=== PATIENT | male | born 1980 | race Caucasian/White ===

== ENCOUNTER → 2018-12-18 | Outpatient (CLI) | payer BC ==
[~2018-12-18] MED LIST: CEFTIN 250250 MG/TAB PO; PEPCID40 MG PO; PRIL40 PO; ZITHROMAX 250M250 MG PO
== END ==
LOC: COL.RAD 12-04 13:15
DX: M51.37 Other intervertebral disc degeneration, lumbosacral region (principal); M48.07 Spinal stenosis, lumbosacral region

== ENCOUNTER 2023-08-20 19:00 | Inpatient (IN) | payer BC ==
[~2023-08-20] VITALS: Ht 195.6 cm; Wt 131.2 kg
--- NOTE | 2023-08-20 19:05 | NUR ---
arrived ambulatory to room 330, and children in room with patient
[2023-08-20 19:11] VITALS: BP 126/83; PULSE 95; TEMP 98
--- NOTE | 2023-08-20 19:20 | NUR ---
Dr Christopher in seeing patient at this time
[2023-08-20] MEDS ORDERED: ASPIRIN E.C. 8181 MG PO (19:34)
[2023-08-20] MEDS ORDERED: LIPITOR20 MG PO (19:35)
[2023-08-20] MEDS ORDERED: MOTRIN 200200 MG/TAB PO (19:36)
[2023-08-20] MEDS ORDERED: NIGHT TIME COL355 M1 PO (19:36)
--- NOTE | 2023-08-20 19:45 | NUR ---
full assessment completed, see interventions for further info
[2023-08-20 20:00] VITALS: BP_SYST 126
--- NOTE | 2023-08-20 20:15 | NUR ---
came out to nurses station from [facility] patient's room and staff informed me he had just walked out of the hospital followed by his children, entered his room and his is still here, she states he was angry because he thought he was coming here to get surgery and didn't want to be kenneth for antibioitics, he was also angry that the antibiotic had not been started yet, I explained to her I was mixing the antibioitic and it was ready now, I notified the nursing component assembler supervisor and she was going to have security ask him to come back into the hospital to sign the AMA paperwork, the was on the phone with the patient and he was back in the building and coming to his room, he entered the room and we talked and I listened to his frustratipm about how his day had gone, his physician before coming here had told him he would be having surgery today, he was frustrated, after we talked and I explained the antibioitic was ready he then agreed to at least stay the night and start the IV antibiotics,
--- NOTE | 2023-08-20 20:35 | NUR ---
IV antibiotics started, he is pleasant and cooperative and visiting with his family, given clear liquids per his request
--- NOTE | 2023-08-20 21:45 | NUR ---
family remains at bedside, discussed with them we usually don't have family spend the night, verbalizes understanding and will go home shortly
--- NOTE | 2023-08-20 22:31 | NUR ---
awake resting in bed, offered to shut off lights but he declines, called nurse back to the room and states he has a weird taste in his mouth, can't really describe it but wanted to report it, will monitor
--- NOTE | 2023-08-20 23:40 | NUR ---
appears to be sleeping, eyes closed resp quiet and easy
[2023-08-20 23:51] VITALS: BP 107/74; PULSE 74; TEMP 98.2
[2023-08-20 23:54] VITALS: BP_SYST 107
[2023-08-21] VITALS (7 sets, daily range): BP systolic 100–133; BP diastolic 62–76; PULSE 67–85; TEMP 98.1–99.9
--- NOTE | 2023-08-21 02:01 | NUR ---
appears to be sleepoing, lights off, eyes closed, resp quiet and easy
--- NOTE | 2023-08-21 03:06 | NUR ---
appears to continue to sleep, resp quiet and easy
--- NOTE | 2023-08-21 04:00 | NUR ---
c/o some abdominal pain and nausea, offered norco or morphine and he declines but agreed to monrin 600mg, also offered zofran but he declines this, encouraged him to let someone know if he changes his mind and needs something stronger for pain or something for nausea, verbalizes understanding
[2023-08-21 05:10] LABS: HEMATOCRIT 38.7 % (42.0-52.0); HEMOGLOBIN 13.2 g/dl (13.5-18.0); MEAN CELL VOLUME 90 fl (80.0-100.0); MEAN CORPUSCULAR HEMOGLOBIN 31 pg (27-31); MEAN CORPUSCULAR HGB CONC 34 g/dl (33.0-37.0); MEAN PLATELET VOLUME 9.4 fl (7.4-10.4); PLATELET COUNT 209 K/mm3 (130-400); REDCELL DISTRIBUTION WIDTH-CV 12.6 % (11.5-14.5)
[2023-08-21 05:25] LABS: C-REACTIVE PROTEIN 8.43 mg/dL (0.00-0.50); CALCIUM 8.7 mg/dL (8.4-10.2); CREATININE, serum 0.95 mg/dL (0.72-1.25); POTASSIUM 3.7 mmol/L (3.5-4.5)
--- NOTE | 2023-08-21 05:30 | NUR ---
awake in bed and states pain is better after motrin
--- NOTE | 2023-08-21 06:50 | NUR ---
bedside shift report given to BOBY De Luna
--- NOTE | 2023-08-21 07:59 | NUR ---
Pt doing okay this morning. He reports not really having any pain at this time, just states that it is uncomfortable. Asked him how it is compared to how it has been and he stated that he has never really been in any pain. But then throughout conversation he will mentioned feeling "miserable" at times. Pt denies wanting anything for pain at this time. We did order him a clear liquid tray. Pt acts as if he has no idea why he is here or what the plan is. Explained to him that he is getting IV antibiotics as his appendix perferated. Pt acted as if he did not know any of this. Pt was under the impression that he was going to have surgery. Explained that Dr Christopher would be in at some point to explain the plan to him in more detail. No other needs at this time
[2023-08-21] MEDS ORDERED: AMOXICILLIN 8751 TAB PO (08:55)
--- NOTE | 2023-08-21 08:58 | NUR ---
Educated pt on room service and that his diet is changed to general. Suggested that he does not over stuff himself. Pt verbalized understanding on this. PT reports pain is tolerable at this time. Educated that he will get another dose of IV antibiotics at noon and will need to stay until it is done which will be about 4 hours. Educated that he will go home on oral antibiotics and that it could be picked up by a family member before hand if wanted. No needs at this time, will continue to monitor
--- NOTE | 2023-08-21 10:04 | NUR ---
appliance worker met with pt and , Casandra [phone] at bedside. Pt displayed a flat affect and said "sure.." when asked if she can go over his information. Pt lives with his in [place]. He sees Dr. Guzman and obtains medications from [facility] with no difficulties. He does not use any DME and is indpendent with all ADLS. Pt does not have a DPOA-HC and declined one at this time. Pt intends to return home today. Discharge Plan: Home
--- NOTE | 2023-08-21 10:11 | NUR ---
Initial visit; Patient Indisposed, his declined Spiritual Care though thanked Corner Cutter Machine Operator for stopping. Corner Cutter Machine Operator wished her well.
--- NOTE | 2023-08-21 11:56 | NUR ---
Pt doing well. Started antibiotic. Pt reports pain is tolerable and does not need any pain medication at this time.
--- NOTE | 2023-08-21 14:57 | NUR ---
Reviewed discharge instructions with pt and spouse. All questions answered. Waiting on IV antibiotic to complete before discharging to home
== END 2023-08-21 16:15 | disposition home or self-care (01) | DRG 373 ==
LOC: SURG 19:00
PROVIDERS: ADMIT Surgery
DX: K35.32 Acute appendicitis with perforation, localized peritonitis, and gangrene, without abscess (principal); E78.5 Hyperlipidemia, unspecified; Z87.891 Personal history of nicotine dependence; Z79.82 Long term (current) use of aspirin
CPT/HCPCS: J2543; J7030

== ENCOUNTER 2023-10-24 06:04 | Day surgery (SDC) | payer BC ==
[~2023-10-24] VITALS: Ht 193 cm; Wt 135.7 kg
[~2023-10-24 06:04] MED LIST changes: +AMOXICILLIN 8751 TAB PO; +ASPIRIN E.C. 8181 MG PO; +Famotidine 20 MG TAB PO SCH; +LIPITOR20 MG PO; +LR 1,000 ML IV SCH; +MOTRIN 200200 MG/TAB PO; +Metoclopramide 10 MG TAB PO SCH; +NIGHT TIME COL355 M1 PO; +TYLENOL 500MG500 MG PO
[2023-10-24 07:07] VITALS: BP 128/76; PULSE 74; TEMP 97.4
[2023-10-24] MEDS ORDERED: Ondansetron 4 MG/2 ML VIAL IV ONE (07:15)
[2023-10-24] MEDS ORDERED: Lidocaine PF 2% (20 MG/ML) 5 ML VIAL IV ONE (07:15)
[2023-10-24] MEDS ORDERED: NS 10 ML VIAL IV ONE (07:15)
[2023-10-24] MEDS ORDERED: Glycopyrrolate 0.2 MG/ML 1 ML VIAL IV ONE (07:15)
[2023-10-24] MEDS ORDERED: Midazolam 2 MG/2 ML VIAL IV ONE (07:15)
[2023-10-24] MEDS ORDERED: Ketorolac 30 MG/ML VIAL IV ONE (07:15)
[2023-10-24] MEDS ORDERED: Succinylcholine PF 100 MG/5 ML SYRINGE/POLY AMP IV ONE (07:15)
[2023-10-24] MEDS ORDERED: fentaNYL 50 MCG/ML 5 ML VIAL IV ONE (07:15)
[2023-10-24] MEDS ORDERED: Rocuronium 50 MG/5 ML Multi-Dose VIAL IV ONE (07:15)
--- NOTE | 2023-10-24 07:22 | NUR ---
0610 Pt ambulatory to bay 8 with a steady gait, breathing even and unlabored. Pt is alert and oriented, accompanied by his . Consents reviewed and signed by pt. IV established. LR infusing via gravity at KVO. Call light in reach. Warm blanket provided.
[2023-10-24] MEDS ORDERED: Ondansetron 4 MG/2 ML VIAL IV PRN ×2 (07:45→09:00)
[2023-10-24] MEDS ORDERED: droPERidol 2.5 MG/ML 2 ML VIAL IV PRN (07:45)
[2023-10-24] MEDS ORDERED: fentaNYL 50 MCG/ML 2 ML VIAL IV PRN (07:45)
[2023-10-24] MEDS ORDERED: HYDROmorphone 2 MG/1 ML VIAL IV PRN (07:45)
[2023-10-24] MEDS ORDERED: hydrALAZINE 20 MG/ML 1 ML VIAL IV PRN (07:45)
[2023-10-24] MEDS ORDERED: Meperidine 50 MG/ML 1 ML VIAL IV PRN (07:45)
[2023-10-24] MEDS ORDERED: Topical Skin Adhesive 1 EACH (1 ML) TOP ONE (08:18)
[2023-10-24] MEDS ORDERED: NORCO 325 MG-51 TAB PO (08:59)
[2023-10-24] MEDS ORDERED: Acetaminophen 325 MG TAB PO PRN (09:00)
[2023-10-24] MEDS ORDERED: Ibuprofen 600 MG TAB PO PRN (09:00)
[2023-10-24 09:38] VITALS: BP 111/74; PULSE 68; TEMP 98.3
[2023-10-24 09:50] VITALS: BP 129/84; PULSE 68
[2023-10-24 09:58] VITALS: TEMP 97
[2023-10-24 10:05] VITALS: BP 119/74; PULSE 72
--- NOTE | 2023-10-24 10:15 | NUR ---
0938 RETURNS TO ROOM 8 PER CART. AWAKE, ALERT. HOB ELEVATED 70 DEGREES. RESP UNLABORED. ABD SOFT. INCISION X 4 SITES INTACT WITHOUT REDNESS OR DRAINAGE. REPORTS MILD DISCOMFORT. DENIES NEED FOR PAIN MED. VITAL SIGNS OBTAINED. CALL LIGHT AT SIDE. IN ROOM. 0950 TOLERATES PO JUICE AND COFFEE WITHOUT NAUSEA 1000 DISCHARGE INSTRUCTIONS REVIEWED. PATIENT VERBALIZES UNDERSTANDING. COPY PROVIDED IN DISCHARGE FOLDER 1007 SITS ON EDGE OF CART. DRESSES WITH ASSIST FROM . PATIENT THEN AMBULATES TO BATHROOM WITH STANDBY ASSIST. ADMITS TO VOIDING WITHOUT DIFFICULTY
== END 2023-10-24 10:01 | disposition home or self-care (01) ==
LOC: SDCO 06:04
DX: K35.33 Acute appendicitis with perforation, localized peritonitis, and gangrene, with abscess (principal); K36 Other appendicitis; Z87.891 Personal history of nicotine dependence
CPT/HCPCS: J0330; J0690; J1885; J2250; J2405; J2704; J3010; J7120